=== PATIENT | male | born 1995 | race Hispanic/Latino ===

== ENCOUNTER 2023-02-12 06:10 | Day surgery (SDC) | payer OTHER ==
[~2023-02-12] VITALS: Ht 165.1 cm; Wt 71.9 kg
[~2023-02-12 06:10] MED LIST: ceFAZolin SOD 2 GM in IV 1 EA IV ONE
[2023-02-12] MEDS ORDERED: LR 1,000 ML IV SCH ×2 (06:30→08:10)
[2023-02-12] MEDS ORDERED: LIDOCAINE 1% SDV 30ML VIAL As Ordered ONE (07:15)
[2023-02-12] MEDS ORDERED: MIDAZOLAM INJ 2MG/2ML VIAL As Ordered ONE (07:18)
[2023-02-12] MEDS ORDERED: fentaNYL 100 MCG/2 ML INJECTION As Ordered ONE (07:18)
[2023-02-12] MEDS ORDERED: LIDOCAINE 2% 100MG/5ML SDV (FOR ANES.) As Ordered ONE (07:19)
[2023-02-12] MEDS ORDERED: KETOROLAC 60MG 2ML VIAL As Ordered ONE (07:19)
[2023-02-12] MEDS ORDERED: propofoL 200 MG/20 ML VIAL As Ordered ONE (07:19)
[2023-02-12] MEDS ORDERED: ONDANSETRON 4MG 2ML VIAL As Ordered ONE (07:19)
[2023-02-12] MEDS ORDERED: ceFAZolin 2 GM/D5W 50 ML IV BAG As Ordered ONE (07:43)
[2023-02-12] MEDS ORDERED: ACETAMINOPHEN 1000MG 100ML IV BAG As Ordered ONE (07:45)
[2023-02-12] MEDS ORDERED: ONDANSETRON 4MG 2ML VIAL IV PRN (08:10)
[2023-02-12] MEDS ORDERED: HYDROMORPHONE HCL 0.5 MG/ 0.5 ML SYRINGE IV PRN (08:10)
[2023-02-12] MEDS ORDERED: fentaNYL 100 MCG/2 ML INJECTION IV PRN (08:10)
[2023-02-12] MEDS ORDERED: oxyCODONE 5MG TAB PO PRN (08:10)
[2023-02-12] MEDS ORDERED: HYDR-3713 PO (08:11)
[2023-02-12] MEDS ORDERED: CEPH500C PO (08:11)
[2023-02-12 08:56] VITALS: TEMP 97.1
[2023-02-12 09:40] VITALS: BP 134/84; O2SAT 96
== END 2023-02-12 09:50 | disposition home or self-care (01) ==
LOC: M SDC 06:10
PROVIDERS: ATTEND Urology
DX: N47.1 Phimosis (principal)
CPT/HCPCS: 54161; 88304; J0131; J0690; J1100; J1885; J2250; J2405; J3010

== ENCOUNTER → 2024-10-03 | Outpatient (CLI) | payer OTHER ==
[~2024-10-03] MED LIST changes: +CEPH500C PO; +HYDR-3713 PO; -ceFAZolin SOD 2 GM in IV 1 EA IV ONE
== END ==
LOC: M PLARAD 08:41
PROVIDERS: ATTEND Audiologist
DX: H90.3 Sensorineural hearing loss, bilateral (principal)